=== PATIENT | female | born 1970 | race American Indian/Alaskan Native ===

== ENCOUNTER 2020-08-02 07:59 | Outpatient (CLI) | payer BC, OTHER ==
--- NOTE | 2020-08-02 10:21 | Ultrasound Report ---
ULTRASOUND ABDOMEN, COMPLETE INDICATION: Abdominal pain. COMPARISON: No relevant prior imaging study available. FINDINGS: Pancreas: No significant abnormality. Abdominal Aorta: No significant abnormality. IVC: No significant abnormality. Liver: Fatty liver. Normal hepatopedal blood flow in the main portal vein. Gallbladder: Cholelithiasis. Bile ducts: No significant abnormality. Common bile duct measures 4 mm. Kidneys: Right: No significant abnormality. Left: No significant abnormality. Spleen: No significant abnormality. Free fluid: None. Additional Findings: None. IMPRESSION: Fatty liver with cholelithiasis, as above. Signer Name: Cody Sher MD Signed: 08/02/2020 10:17 AM Workstation Name: [id number]
--- NOTE | 2020-08-04 12:22 | Mammography Report ---
BILATERAL DIGITAL SCREENING MAMMOGRAM WITH CAD HISTORY: Screening mammogram. TECHNIQUE: Routine digital mammographic imaging performed. This examination was interpreted with patrick yanes benefit of Computer-aided Detection analysis. COMPARISON: 05/26/2017, 03/21/2013 (outside imaging performed at [facility]). FINDINGS: Breast Density: scattered fibroglandular appearance of the breast tissue. Digital CC and MLO views demonstrate a right superior breast asymmetry at middle depth seen on the ML O view appears new. No suspicious findings within the left breast. IMPRESSION: Right superior breast asymmetry for which additional mammographic views (spot MLO, full ML) are recom mended for further evaluation. A possible targeted ultrasound may be indicated after mammographic vi ews. BIRADS 0-Incomplete: Needs additional imaging evaluation NOTE: WE WILL RECALL THE PATIENT FOR THIS ADDITIONAL EVALUATION. FURTHER INFORMATION: According to the [employer], yearly mammograms are recommend ed starting at age 40 and continuing as long as a woman is in good health. Clinical Breast Exams shou ld be part of a periodic health exam-about every 3 years for women in their 20s and 30s and every yea r for women 40 and over. Breast self exam is an option for women starting in their 20s. Any breast ch nelsy noted on a breast self exam should be reported promptly to the patient's healthcare provider. Br east MRI is recommended for women with an approximately 20-25% or greater lifetime risk of breast can cer, including women with a strong family history of breast or ovarian cancer and women who have been treated for Hodgkin's disease. A negative Mammography report should not discourage follow up or biopsy of a clinically significant f inding and/or abnormality. Dense breast tissue may obscure small neoplasms. The patient will be entered into a reminder system with a target due date for the next screening mamm ogram. Signer Name: Valentin Breen MD Signed: 08/04/2020 12:17 PM Workstation Name: [id number]
== END 2020-08-02 08:00 | disposition home or self-care (01) ==
LOC: MAMMO 07:59
PROVIDERS: ATTEND Family Medicine
DX: Z01.818 Encounter for other preprocedural examination (principal); Z12.31 Encounter for screening mammogram for malignant neoplasm of breast; K76.0 Fatty (change of) liver, not elsewhere classified; K80.80 Other cholelithiasis without obstruction
CPT/HCPCS: 76700; 77067

== ENCOUNTER 2021-07-25 12:11 | Outpatient (CLI) | payer BC ==
[2021-07-25 13:11] LABS: Hematocrit 42.1 % (30.3-42.9); Hemoglobin 13.2 gm/dl (10.1-14.3); Mean Corpuscular HGB Conc 31 % (30-34); Mean Corpuscular Volume 95 fl (79-97); Platelet Count 269 K/mm3 (140-440); Red Blood Count 4.46 M/mm3 (3.65-5.03); Red Cell Distribution Width 14.5 % (13.2-15.2)
[2021-07-25 13:19] LABS: INR 0.85 (0.87-1.13)
[2021-07-25 13:20] LABS: Partial Thromboplastin Time 26.8 Sec. (24.2-36.6)
[2021-07-25 13:50] LABS: Alanine Aminotransferase 20 units/L (7-56); Albumin 4.4 g/dL (3.9-5); BUN/Creatinine Ratio 15; Blood Urea Nitrogen 12 mg/dL (7-17); Calcium 9.1 mg/dL (8.4-10.2); Hemolysis Index 4
--- NOTE | 2021-07-25 15:25 | XRay Report ---
CHEST 2 VIEWS INDICATION: PREOP FOR SURGERY Z01.818. COMPARISON: None. FINDINGS: Support devices: None. Heart: Within normal limits. Lungs/Pleura: No acute air space or interstitial disease. No significant pleural effusion. IMPRESSION: No acute findings. Signer Name: Federico Bernal MD Signed: 07/25/2021 3:21 PM Workstation Name: [id number]
--- NOTE | 2021-07-25 16:54 | Ultrasound Report ---
LIMITED RUQ ABDOMINAL ULTRASOUND INDICATION: PRE OP FOR SURGERY; puffiness at umbilicus area per patient. COMPARISON: No relevant prior imaging study available. IMPRESSION: Limited superficial imaging over the region of the umbilicus shows no appreciable abnormality. No mas s, collection, or obvious hernia. Correlate with exam findings. Signer Name: Teddy Rausch MD Signed: 07/25/2021 4:50 PM Workstation Name: [id number]
== END 2021-07-25 12:12 | disposition home or self-care (01) ==
LOC: CARD 12:11
DX: Z01.818 Encounter for other preprocedural examination (principal); K42.9 Umbilical hernia without obstruction or gangrene
CPT/HCPCS: 36415; 71046; 76705; 80053; 84443; 84703; 85027; 85610; 85730; 86689; 87517; 93005